=== PATIENT | female | born 2000 | race Caucasian/White ===

== ENCOUNTER 2024-12-01 17:33 | Emergency (ER) | payer BC, SELFPAY ==
[2024-12-01 17:35] VITALS: BP 134/95
[2024-12-01] MEDS: TYLENOL 650 MG PO (19:36)
--- NOTE | 2024-12-01 20:34 | ED.GENMED ---
History of Present Illness
General
Chief Complaint: Head Injury
Source: patient
Exam Limitations: none
Time Seen by Provider: 12/01/24 19:02
Nursing documentation reviewed up to this point in time: agreed with
History of Present Illness
History of Present Illness:
Patient is a 24-year-old female who presents to the emergency department for evaluation of head injury. She states that yesterday she was playing with her dog when he moved his head suddenly striking her in the face. She denies any loss of
consciousness however states that she felt foggy immediately as it occurred. She reports mild pain in her jaw and face as well as a mild headache. She reports associated nausea although denies any vomiting. She denies any double vision or neck
pain. She denies any confusion.
She does have a chronically dizzy sensation and unsteadiness�is currently being worked up for POTS and follows with multiple specialists however do feel symptoms may have been exacerbated by the head strike.
Patient states she initially went to work last night although left after feeling very foggy. She is worried that she may have a concussion.
Review of Systems
Review of Systems
Allergies reviewed?: Yes
All Other Systems: ROS reviewed and negative except as documented in HPI and ROS
Phy Exam
Physical Exam
Physical Exam:
Vitals: Mildly hypertensive, otherwise vital signs stable. Afebrile
General: Patient is well appearing, no acute distress. Nontoxic.
Skin: Warm and dry, no rashes or lesions
Head: Normocephalic, atraumatic. No tenderness to TMJ. Negative tongue depressor bite stick test
Eyes: Sclera nonicteric. EOMs intact. Pupils equal round reactive to light bilaterally. No periorbital tenderness bilaterally. No nystagmus.
Ears: Bilateral external auditory canals clear with visualized landmarks and clear TM�no hemotympanum.
Throat: Protecting airway
Neck: Normal ROM, no cervical spine tenderness, no meningismus
Cardiac: Regular rate and rhythm, no murmurs.
Pulm: Normal respiratory effort
.
Abdomen: No abdominal tenderness.
Extremities: No evidence of cyanosis or edema. Strength 5/5 in bilateral upper and lower extremity
Neuro: AAOx3. Normal finger-nose. Steady gait and fluid speech. No focal neurologic
Psychiatric: Normal affect.
Course
Orders/Labs/Results
Orders:
Orders
12/01/24 19:28
Acetaminophen [Tylenol] 650 mg PO NOW STA
Vital Signs
Initial and Last Documented VS:
Initial Vital Signs
Temp Pulse Resp BP Pulse Ox
97.6 F 73 16 134/95 99
12/01/24 17:35 12/01/24 17:35 12/01/24 17:35 12/01/24 17:35 12/01/24 17:35
Last Documented Vital Signs
Temp Pulse Resp BP Pulse Ox
97.6 F 73 16 134/95 99
12/01/24 17:35 12/01/24 17:35 12/01/24 17:35 12/01/24 17:35 12/01/24 20:35
MDM/Problems Addressed
Differential Diagnosis Includes:
Not limited to: Contusion, concussion, facial fracture, etc.
MDM/Problems Addressed:
24-year-old female presenting after mild head injury yesterday when her dogs head hit her face. She reports lingering mild headache, nausea, fogginess, dizziness. No changes in mental status or vomiting. Patient mildly hypertensive, otherwise
with stable vital signs on arrival. Physical exam as above. Patient very well-appearing, in no apparent distress. She has no evidence of head or neck trauma. No evidence of basilar skull fracture or tenderness to facial bones or TMJ�patient A&O
x 3 without any focal neurologic deficits. She has steady gait and fluid speech.
Ultimately�very low risk mechanism. It has been over 24 hours since trauma and patient remains very well and comfortable appearing. She has no focal neurologic deficits on exam. Do not suspect fracture of facial bones or jaw. Very low suspicion
for acute traumatic intracranial injury. Symptoms most consistent with mild concussion. Shared decision making utilized with patient regarding close monitoring at home versus imaging of head. Patient comfortable with close monitoring at home which
I feel is a very reasonable decision at this time. Will give Tylenol for headache and discharged home with very close return precautions and supportive care instructions for concussion including rest, hydration, Tylenol/NSAIDs for pain. Return
precautions discussed.
Chronic conditions affecting care:
N/A
Acute Exacerbation and/or Progression of Chronic Illness:
N/A
*Pulse Oximetry
SaO2: 99
Oxygen Mode of Delivery: Room air
Patient hypoxic: no
*EKG
Interpreted by ED Provider?: NA
*Frame Tender Interpretation
Rate: Frame Tender- N/A
*Critical Care Note
Total Time (30-74mins, 75-104mins- exclusive of procedures): Not Applicable
ED Attending Note
-
Portions of this chart may have been created with voice recognition software.� Occasional wrong word or��sound alike� substitutions may have occurred due to the inherent limitations of voice recognition software.
Discharge Plan
Departure
Patient Disposition: Home (Routine Discharge)
Date of Disposition: 12/01/24
Time of Disposition: 19:28
Patient with high blood pressure during this ER visit?: Yes
Condition: Good
Discharge Problem:
Concussion
Instructions: Concussion, Adult (DC), BLOOD PRESSURE
Referrals:
LINA SIMPSON [Other]
Stand Alone Forms: Return to Work
Activity Restrictions/Additional Instructions:
RETURN TO THE EMERGENCY DEPARTMENT WITH ANY SEVERE HEADACHE OR NECK PAIN, CHANGES IN MENTAL STATUS, VISUAL CHANGES, PERSISTENT DIZZINESS, VOMITING, WORSENING IN CURRENT SYMPTOMS, OR ANY OTHER CONCERNS
- As discussed�based on your mechanism and symptoms I suspect you likely have a minor concussion.
- Please stay well-hydrated and get plenty of rest. You should limit screen time. You can take Tylenol and/or Motrin as needed for pain.
- Follow-up with your primary care for further evaluation/management to ensure that symptoms are improving
Monitor your symptoms closely and return to the emergency department with any acute worsening/new symptoms or any other concerns
Interventions
Interventions:
*Risk Screen - Suicide Last Done: 12/01/24 17:35
*General Assessment Last Done: 12/01/24 17:35
*Neglect/Abuse Screening Last Done: 12/01/24 17:35
*Nursing Disposition Last Done: 12/01/24 19:40
ED- Neurological Assessment Last Done: 12/01/24 18:53
ED-Skin Assessment Last Done: 12/01/24 18:53
Discharge Date and Time
Discharge Date/Time: 12/01/24 19:40
Print Language: LAO
== END 2024-12-01 19:40 | disposition home or self-care (01) ==
LOC: EMR 17:33
PROVIDERS: EMERGENCY PHYSICIAN Emergency Medicine
DX: S06.0X0A Concussion without loss of consciousness, initial encounter (principal); W54.1XXA Struck by dog, initial encounter
CPT/HCPCS: 99282

== ENCOUNTER 2024-12-06 09:59 | Emergency (ER) | payer BC, SELFPAY ==
[2024-12-06 10:05] VITALS: BP 150/90
[2024-12-06 11:00] VITALS: BP 117/65
[2024-12-06 12:00] VITALS: BP 120/73
[2024-12-06] MEDS: BENADRYL 25 MG IV (12:08)
[2024-12-06] MEDS: NSS 1000 IV (12:08)
[2024-12-06] MEDS: TORADOL 15 MG IV (12:08)
[2024-12-06] MEDS: REGLAN 10 MG IV (12:08)
--- NOTE | 2024-12-06 12:15 | ED.GENMED ---
History of Present Illness
General
Chief Complaint: Head Injury
Source: patient
Exam Limitations: none
Time Seen by Provider: 12/06/24 10:51
Nursing documentation reviewed up to this point in time: agreed with
History of Present Illness
History of Present Illness:
24 y/o F with h/o HTN, asthma, possible POTS, anxiety
here with headache persistent after facial/head injury on 11/30
she was on the floor petting dog who whipped his head back and hit her in the L cheek area
she had some facial pain that resolved but headache peristed, no LOC
came to ed on 12/01 and had eval
dx concussion, told concussive precautions
says she has been following directions and taking tylenol/motrinf or headache but had some nausea yesterday with occ vomiting and feels owose today with dizziness and headache
does have h/o migraines and likely POTS which could be contributing
no ams
no weakness
Past History
Past History
ED Past Medical History: Psychiatric and Other (POTS?)
Social History
Tobacco: Smoker
Alcohol: None
Drug: Marijuana
Review of Systems
Review of Systems
Allergies reviewed?: Yes
All Other Systems: Not applicable
Phy Exam
Physical Exam
Physical Exam:
GENERAL: Alert , in no apparent distress; wearing sunglasses, lights off but no significant photophobia
HEAD: NCAT
EYE: pupils equal and reactive, no nystagmus, NO SIGNIFICANT photophobia
NECK: Supple,full rom, nontender
ENT: o/p clr, mmm.
CARDIAC: Regular rate and rhythm . no edema
LUNGS: Clear breath sounds bilaterally, no acute respiratory distress, no wheezes/rales/rhonchi
ABDOMEN: Soft, without focal tenderness, no r/g, no cvat
NEUROLOGICAL: Alert and orientedx 4, cn intact, no facial asymmetry, 5/5 strength in UE/LE, sensation intact, romberg neg, ambulates without assistance, neg pronator drift
SKIN: Warm and dry, skin intact.
MUSCULOSKELETAL: No edema, well perfused.
PSYCH: Normal and appropriate interaction.
Course
Orders/Labs/Results
Orders:
Orders
12/06/24 11:58
0.9% Sodium Chloride 1000 ml [Nss] 1,000 ml IV BOLUS
Diphenhydramine [Benadryl] 25 mg IV NOW STA
Ketorolac [Toradol] 15 mg IV NOW STA
Metoclopramide [Reglan] 10 mg IV NOW STA
12/06/24 12:00
CT Head W/o Iv Contrast Urgent
Comment:
Reason For Exam: vomiting, headache after head injury
Test Result ONCE
12/06/24 12:07
Complete Blood Count/With Diff Urgent
Comprehensive Metabolic Panel Urgent
HCG, Serum Qualitative Screen Urgent
Abnormal Lab Results
12/06/24
12:07
MCH 31.5 H pg
(27.0-31.0)
Chloride 112 H mmol/L
(98-107)
12/06/24 12:07
12/06/24 12:07
Vital Signs
Initial and Last Documented VS:
Initial Vital Signs
Temp Pulse Resp BP Pulse Ox
36.6 C 70 16 150/90 95
12/06/24 10:05 12/06/24 10:05 12/06/24 10:05 12/06/24 10:05 12/06/24 10:05
Last Documented Vital Signs
Temp Pulse Resp BP Pulse Ox
36.6 C 70 16 100/50 99
12/06/24 10:05 12/06/24 13:45 12/06/24 13:45 12/06/24 13:00 12/06/24 13:45
MDM/Problems Addressed
Differential Diagnosis Includes:
migraine, post concussive syndrome, dheydraiton, viral syndrome
MDM/Problems Addressed:
24 y/o F
head injury last week
headache continues
n/v today
h/o migraines
not worst headache of life
no thinners
neuro intact
head ct neg
pain improved with meds migraine cocktail
eating salmon at the bedside
d/c home
*Pulse Oximetry
SaO2: 97
Oxygen Mode of Delivery: Room air
Patient hypoxic: no (99)
*Critical Care Note
Total Time (30-74mins, 75-104mins- exclusive of procedures): Not Applicable
ED Attending Note
-
Portions of this chart may have been created with voice recognition software.� Occasional wrong word or��sound alike� substitutions may have occurred due to the inherent limitations of voice recognition software.
Discharge Plan
Departure
Patient Disposition: Home (Routine Discharge)
Date of Disposition: 12/06/24
Time of Disposition: 14:32
Patient with high blood pressure during this ER visit?: No
Condition: Fair
Covid-19: Not Applicable
Discharge Problem:
Post concussion syndrome
Instructions: Concussion, Adult (DC)
Referrals:
UNKNOWN - PT DOES,NOT KNOW [Family Provider]
Activity Restrictions/Additional Instructions:
YOUR BLOOD WORK AND CAT SCAN WERE UNREMARKABLE
YOU PROBABLY HAVE MIGRAINE OR SYMTPOMS OF POST CONCUSSIVE SYNDROME
EAT BLAND DIET, TAKE MEDICATION FOR YOUR HEADACHE LIKE TYLENOL OR IBUPROFEN
FOLLOW UP WITH YOUR DOCTOR FOR CONTINUED SYMPTOMS
RETURN FO RANY SERIOUS CONCERNS.
Interventions
Interventions:
*Risk Screen - Suicide Last Done: 12/06/24 10:07
*General Assessment Last Done: 12/06/24 10:08
*Neglect/Abuse Screening Last Done: 12/06/24 10:07
*ED- Fall Risk Assessment Last Done: 12/06/24 11:04
*ED COVID-19 Vaccine History Last Done: 12/06/24 11:04
*Nursing Disposition Last Done: 12/06/24 14:46
ED- Neurological Assessment Last Done: 12/06/24 11:04
ED-Skin Assessment Last Done: 12/06/24 11:04
Discharge Date and Time
Discharge Date/Time: 12/06/24 14:47
Print Language: HAITIAN
[2024-12-06 12:23] LABS: Hematocrit 40.7 % (37.0-47.0); Hemoglobin 14.4 g/dL (12.0-16.0); Mean Corp Hgb Conc. 35.4 g/dL (33.0-37.0); Mean Corpuscular Volume 89.1 fL (81.0-99.0); Nucleated Red Blood Cells % 0 %; Platelet Count 270 10^3/uL (130-400); Red Cell Dist. Width 11.5 % (11.5-14.5)
[2024-12-06 12:52] LABS: ALT (SGPT) 18 U/L (0-35); AST (SGOT) 21 U/L (14-36); Albumin 4.3 g/dl (3.5-5.0); Alkaline Phosphatase 39 U/L (38-126); Blood Urea Nitrogen 14 mg/dl (7-17); Calcium 9.4 mg/dl (8.4-10.2); Carbon Dioxide 24 mmol/L (22-30); Chloride 112 mmol/L (98-107); Glucose 95 mg/dl (70-99); Potassium 4.5 mmol/L (3.5-5.1); Sodium 141 mmol/L (135-145); Total Protein 7.0 g/dl (6.3-8.2); eGFR > 60.00
[2024-12-06 12:55] LABS: HCG, Serum Qualitative Screen Negative
[2024-12-06 13:00] VITALS: BP 100/50
== END 2024-12-06 14:47 | disposition home or self-care (01) ==
LOC: EMR 09:59
PROVIDERS: Physician Assistant; EMERGENCY PHYSICIAN Emergency Medicine
DX: R51.9 Headache, unspecified (principal); R11.2 Nausea with vomiting, unspecified; R42 Dizziness and giddiness; F07.81 Postconcussional syndrome; I10 Essential (primary) hypertension; J45.909 Unspecified asthma, uncomplicated; F41.9 Anxiety disorder, unspecified; F32.A Depression, unspecified; F17.200 Nicotine dependence, unspecified, uncomplicated
CPT/HCPCS: 96375; 70450; 80053; 84703; 85025; 96374; 99284